=== PATIENT | female | born 1995 ===

== ENCOUNTER 2017-08-27 10:47 | Emergency (ER) | payer SELFPAY ==
[2017-08-27 11:00] VITALS: RESP 16; TEMP 98.2
--- NOTE | 2017-08-27 11:09 | C.PDOC ---
History Of Present Illness 22-year-old female, , presents to the emergency department with complaints of vaginal bleeding that started this morning. Patient reports she has a Hx of similar and was seen in ED for it. Notes mild pelvic cramping occasionally, which has now resolved. Denies fevers, chills, chest pain, shortness of breath, dizziness, back pain, nausea/vomiting, or any other associated symptoms. No other complaints at this time. NEW VB SINCE LAST NIGHT. SPOTTING. . OCC ASSOC CRAMPING, NO OTHER ASSOC SX OBGYN [facility] EXAM NEG Time Seen by Provider: 08/27/17 11:09 Chief Complaint (Nursing): Female Genitourinary History Per: Patient History/Exam Limitations: no limitations Onset/Duration Of Symptoms: Days Current Symptoms Are (Timing): Still Present Severity: Moderate Past Medical History Reviewed: Historical Data, Nursing Documentation, Vital Signs Vital Signs: Last Vital Signs Temp 98.2 F 08/27/17 10:57 Pulse 101 H 08/27/17 10:57 Resp 16 08/27/17 10:57 BP 103/71 08/27/17 10:57 Pulse Ox 100 08/27/17 12:56 Family History: States: No Known Family Hx - Social History Hx Alcohol Use: No Hx Substance Use: No - Immunization History Hx Tetanus Toxoid Vaccination: No Hx Influenza Vaccination: No Hx Pneumococcal Vaccination: No Review Of Systems Except As Marked, All Systems Reviewed And Found Negative. Constitutional: Negative for: Fever, Chills Cardiovascular: Negative for: Chest Pain, Palpitations Respiratory: Negative for: Shortness of Breath Gastrointestinal: Positive for: Abdominal Pain Genitourinary: Positive for: Vaginal Bleeding. Negative for: Dysuria, Frequency , Hematuria, Vaginal Discharge Musculoskeletal: Negative for: Back Pain Physical Exam - Physical Exam Appears: Non-toxic, No Acute Distress Skin: Normal Color, Warm, Dry, No Rash Head: Normacephalic Eye(s): bilateral: Normal Inspection, PERRL Nose: Normal Oral Mucosa: Moist Lips: Normal Appearing Neck: Normal ROM Chest: Symmetrical Cardiovascular: Rhythm Regular, No Murmur Respiratory: Normal Breath Sounds, No Accessory Muscle Use Gastrointestinal/Abdominal: Soft, No Tenderness, No Guarding, No Rebound Extremity: Normal ROM Neurological/Psych: Oriented x3, Normal Speech ED Course And Treatment - Laboratory Results Result Diagrams: 08/27/17 11:53 08/27/17 11:53 O2 Sat by Pulse Oximetry: 100 (RA) Pulse Ox Interpretation: Normal Progress - Data Reviewed Data Reviewed: Lab, Diagnostic imaging, Old records Disposition Counseled Patient/Family Regarding: Studies Performed, Diagnosis, Need For Followup - Disposition Referrals: YOUR,OBGYN [Other] Disposition: HOME/ ROUTINE Disposition Time: 13:35 Condition: GOOD Instructions: Threatened Miscarriage Forms: [employer] ([place]) - Clinical Impression Clinical Impression: Threatened miscarriage - Scribe Statement The provider has reviewed the documentation as recorded by the Scribe (Geeta Cummings) All medical record entries made by the Scribe were at my direction and personally dictated by me. I have reviewed the chart and agree that the record accurately reflects my personal performance of the history, physical exam, medical decision making, and the department course for this patient. I have also personally directed, reviewed, and agree with the discharge instructions and disposition.
[2017-08-27 11:57] LABS: BASO % 0.3 % (0.0-2.0); EOS # 0.1 K/uL (0.0-0.7); EOS % 0.9 % (0.0-4.0); HEMOGLOBIN 11.2 g/dL (11.0-16.0); LYMPH # 1.6 K/uL (1.0-4.3); MEAN CELL VOLUME 85.4 fL (81.0-99.0); MEAN CORPUSCULAR HEMOGLOBIN 30.2 pg (27.0-31.0); MEAN CORPUSCULAR HGB CONC 35.4 g/dL (33.0-37.0); MONO # 0.6 K/uL (0.0-0.8); NEUT # 5.7 K/uL (1.8-7.0); NEUT % 71.8 % (50.0-75.0); RBC 3.71 Mil/uL (3.80-5.20); RED CELL DISTRIBUTION WIDTH 12.6 % (11.5-14.5)
[2017-08-27 12:14] LABS: BLOOD UREA NITROGEN 8 mg/dL (7-17); CALCIUM 9.9 mg/dl (8.6-10.4); GFR AFRICAN-AMERICAN > 60; GFR NON-AFRICAN AMERICAN > 60; SQUAMOUS EPITHIAL 1 /hpf (0-5); URINE BACTERIA RARE (<OCC); URINE BILIRUBIN NEGATIVE (NEGATIVE); URINE BLOOD NEGATIVE (NEGATIVE); URINE CLARITY Clear (Clear); URINE COLOR Straw (YELLOW); URINE GLUCOSE (UA) NORMAL (Normal); URINE LEUKOCYTE ESTERASE NEG Leu/uL (Negative); URINE NITRATE NEGATIVE (NEGATIVE); URINE PROTEIN NEGATIVE (NEGATIVE); URINE UROBILINOGEN NORMAL mg/dL (0.2-1.0)
--- NOTE | 2017-08-27 13:09 | US ---
PROCEDURE: OB Pelvic Ultrasound HISTORY: VB R/O ECTOPIC LMP: COMPARISON: None available. FINDINGS: UTERUS: Gestational sac: Single intrauterine gestation. Heart rate: 179 bpm. age (Ultrasound estimated): 9 weeks 0 day 0 weeks 4 days Vanessa-gestational hemorrhage: There is suspicious for subchorionic hemorrhage measures 1.7 x 0.6 x 1 centimeter Date of delivery (Ultrasound estimated) : 04/01/2018 Uterus measures 11.5 x 6.5 x 7.4 cm. Normal in size and appearance. CERVIX: Measures 3.1 cm. Long and closed. No cervical abnormality seen. RIGHT OVARY: Measures 2.7 x 1.6 x 2.9 cm. No mass lesion. Normal flow. LEFT OVARY: Measures 3.4 x 2.3 x 2 cm. No solid mass. Normal flow. FREE FLUID: None. OTHER FINDINGS: None. IMPRESSION: Single intrauterine live with ultrasound estimated gestational age of 9 weeks 0 day 0 weeks 4 days. Estimated date of delivery by ultrasound is 04/01/2018. Small subchorionic hemorrhage measures 1.7 x 0.6 x 1 cm.
[2017-08-27 13:51] VITALS: BP 108/81; PULSE 90; O2SAT 98
== END 2017-08-27 13:50 | disposition home or self-care (01) ==
LOC: C.ER 10:47
DX: O20.0 Threatened abortion (principal); Z3A.09 9 weeks gestation of pregnancy

== ENCOUNTER 2018-02-28 13:11 | Emergency (ER) | payer MEDICAID, SELFPAY ==
[2018-02-28 14:01] VITALS: BMI 29.5
[2018-02-28 15:13] LABS: URINE CLARITY Clear (Clear); URINE COLOR YELLOW (YELLOW); URINE GLUCOSE (UA) 4+ mg/dL (Normal)
[2018-02-28 15:14] LABS: SQUAMOUS EPITHIAL 3 /hpf (0-5); URINE BILIRUBIN NEGATIVE (NEGATIVE); URINE BLOOD TRACE (NEGATIVE); URINE LEUKOCYTE ESTERASE NEGATIVE Leu/uL (Negative); URINE PROTEIN NEGATIVE (NEGATIVE); URINE UROBILINOGEN 0.2 mg/dL (0.2-1.0)
[2018-02-28 15:15] LABS: URINE BACTERIA RARE (<OCC)
[2018-02-28] MEDS ORDERED: Lactated Ringer's 1,000 ML IV ONE (16:19)
--- NOTE | 2018-02-28 20:42 | OBHP ---
Datetime: 02/28/2018 15:33 IP Adm Impression: , intrauterine ; No Active Labor; Intact Membranes IP Admit Plan: Observation/Evaluation Admit Comment, IP Provider: 23 yo female G1 with n IUP at 35 6/7 weeks Pelvic Type - PN: Adequate Extremities - PN: Normal Abdomen - PN: Normal Back - PN: Normal Breast - PN: Not Done Lungs - PN: Normal Heart - PN: Normal Thyroid - PN: Normal Neurologic - PN: Normal HEENT - PN: Normal General - PN: Normal Presentation-Admit: Vertex FHR - Baseline A Provider: 130 Membranes, Provider: Intact Contraction Comments Provider: Irregular Gestation - Est Wks by US: 35 6/7 IP Hx Assessment: Records reviewed EGA AdmitDate IP: 36.6 Vital Signs Provider: Reviewed IP Chief Complaint: Suspected ruptured membranes; Maternal discomfort NICHD Variability Prov Fetus A: Moderate 6-25bpm NICHD Accel Fetus A IP Provider: 10X10 FHR Category Provider Fetus A: Category I NICHD Decel Fetus A IP Provider: None Dilatation, Provider: 0 Effacement, Provider: 0 Station, Provider: H Genitourinary Exam: Normal DTRs - PN: Normal
[2018-02-28 21:53] VITALS: BP 130/73; PULSE 101; RESP 18; TEMP 98.8; O2SAT 99
== END 2018-02-28 17:16 | disposition home or self-care (01) ==
LOC: C.EROB 13:29
DX: O47.03 False labor before 37 completed weeks of gestation, third trimester (principal); Z3A.35 35 weeks gestation of pregnancy
CPT/HCPCS: 59025; 81001; 87070; 96360; 99283; J7120

== ENCOUNTER 2018-03-08 12:55 | Emergency (ER) | payer MEDICAID ==
--- NOTE | 2018-03-08 14:19 | OBHP ---
Datetime: 03/08/2018 14:15 IP Adm Impression: Term, intrauterine IP Admit Plan: Discharge home Admit Comment, IP Provider: 23 y/ @ 38+ wks sent in by clnic due ot psosibel non reassurign fet al heart tracig, pt dneis any ctx, lof, vb, +FM OB: P0 GOLD LAYER: dneis PMH: denies PSH: dneis FHX on tibni MEDS: PNVS SH:Xnegaive eto/tobacc/dugs MENDS PNS NKDA A/P @ 38 wks GA with reassuring materl and well being nst dc home labor puregiatn f/u pmd 03/10/18 Pelvic Type - PN: Adequate Extremities - PN: Normal Abdomen - PN: Normal Back - PN: Normal Breast - PN: Normal Lungs - PN: Normal Heart - PN: Normal Thyroid - PN: Normal Neurologic - PN: Normal HEENT - PN: Normal General - PN: Normal Presentation-Admit: Vertex FHR - Baseline A Provider: 130 Membranes, Provider: Intact Contraction Comments Provider: irregular Gestation - Est Wks by US: 38.0 EGA AdmitDate IP: 38.0 Vital Signs Provider: Reviewed IP Chief Complaint: Uterine contractions NICHD Variability Prov Fetus A: Moderate 6-25bpm FHR Category Provider Fetus A: Category I NICHD Decel Fetus A IP Provider: None Dilatation, Provider: 0 Genitourinary Exam: Normal DTRs - PN: Normal Datetime: 02/28/2018 15:33 Pool Provider: Negative Nitrazine Provider: Negative
--- NOTE | 2018-03-08 14:21 | OBDCSUM ---
Datetime: 03/08/2018 14:19 Discharged to, Provider: Home Follow up at, Provider: clinic Disch Instr Activity: Normal activity Disch Instr Diet: Regular Discharge Instructions, Provider: Routine instructions given Discharge Diagnosis, Provider: Term Delivered Discharge Time: 03/08/2018 14:19 Follow up in weeks, Provider: 03/10/2018 Disch Referrals: None Contraception discussed, Prov: Yes Discharge Comment, Provider: labor purecatuoing iven Contraception after Delivery: Not Planning to Use
[2018-03-09 15:12] VITALS: BP 105/41; PULSE 109
== END 2018-03-08 14:45 | disposition home or self-care (01) ==
LOC: C.EROB 12:55
DX: O26.893 Other specified pregnancy related conditions, third trimester (principal); Z3A.38 38 weeks gestation of pregnancy